=== PATIENT | female | born 1960 | race Caucasian/White ===

== ENCOUNTER 2022-08-04 09:05 | Inpatient (IN) | payer OTHER ==
[2022-08-04 09:39] LABS: HEMATOCRIT 40.4 % (34.3-46.0); HEMOGLOBIN 13.6 g/dL (11.2-15.5); MEAN CORPUSCULAR HEMOGLOBIN 30.4 pg (31.6-35.5); MEAN CORPUSCULAR HGB CONC 33.7 g/dL (31.6-35.5); MEAN CORPUSCULAR VOLUME 90.2 fL (81.4-99.0); RED BLOOD CELL COUNT 4.48 M/uL (3.77-5.24); WHITE BLOOD CELL COUNT,WBC 7.3 K/uL (3.2-11.0)
[2022-08-04] MEDS ORDERED: ceFAZolin 2 GM in Premix Bag 1 BAG IV ONE (09:45)
[2022-08-04] MEDS ORDERED: Lactated Ringers 1,000 ML IV SCH (09:45)
[2022-08-04] MEDS ORDERED: Midazolam 1 MG/ML 2 ML SDV ONE ×2 (09:55→14:06)
[2022-08-04] MEDS ORDERED: Propofol 200 MG/20 ML SDV ONE ×2 (09:55→14:17)
[2022-08-04] MEDS ORDERED: fentaNYL 100 MCG/2 ML SDV ONE (09:55)
[2022-08-04 10:04] LABS: A/G RATIO 0.9 (1.2-2.2); ALANINE AMINOTRANSFERASE,ALT 27 U/L (12-78); ALBUMIN 3.6 g/dL (3.4-5.0); ALKALINE PHOSPHATASE 86 U/L (46-116); ASPARTATE AMNIOTRANSFERASE,AST 23 U/L (15-37); BILIRUBIN TOTAL 0.4 mg/dL (0.2-1.0); BLOOD UREA NITROGEN,BUN 15 mg/dL (7-18); CALCIUM 9.2 mg/dL (8.5-10.1); CARBON DIOXIDE,CO2 27 mmol/L (21-32); CHLORIDE,CL 103 mmol/L (100-108); CREATININE 0.8 mg/dL (0.6-1.0); ESTIMATED GFR 84 mL/min (>60); GLUCOSE RANDOM 97 mg/dL (74-106); PROTEIN TOTAL,TP 7.6 g/dL (6.4-8.2); SODIUM,NA 138 mmol/L (140-148)
[2022-08-04] MEDS: Nozin Nasal Sanitizer NASBOTH SCH ×2 (10:28→21:06)
[2022-08-04] MEDS ORDERED: Bupivacaine 0.5% 50 ML MDV ONE (10:40)
[2022-08-04] MEDS ORDERED: oxyCODONE 5 MG Tab PO PRN (13:22)
[2022-08-04] MEDS ORDERED: Docusate Sodium 100 MG Cap PO PRN (13:23)
[2022-08-04] MEDS ORDERED: Non-Formulary Medication 1 Each (Diphenhydramine [Benadryl] 50 MG Cap) PO PRN (13:26)
[2022-08-04] MEDS ORDERED: ceFAZolin 1 GM in Sodium Chloride 0.9% 50 ML IV SCH (13:30)
[2022-08-04] MEDS ORDERED: Lactated Ringers 1,000 ML ONE (13:46)
[2022-08-04] MEDS ORDERED: diphenhydrAMINE 25 MG Cap PO PRN (16:22)
[2022-08-04] MEDS: Morphine 2 MG/ML SYRINGE IVPUSH PRN ×2 (16:26→22:49)
[2022-08-04] MEDS: Acetaminophen 325 MG Tab PO SCH ×2 (16:59→21:07)
[2022-08-04] MEDS: oxyCODONE 5 MG Tab PO PRN ×2 (17:59→19:17)
[2022-08-04] MEDS ORDERED: Nozin Nasal Sanitizer NASBOTH SCH (21:00)
[2022-08-04] MEDS: Aspirin 325 MG Tab.EC PO SCH (21:07)
[2022-08-04] MEDS: ceFAZolin 1 GM in Premix Bag 1 BAG IV SCH (21:08)
[2022-08-05] MEDS: Sodium Chloride 0.9% 1,000 ML IV SCH ×2 (01:33→10:09)
[2022-08-05] MEDS: oxyCODONE 5 MG Tab PO PRN ×2 (02:49→08:58)
[2022-08-05] MEDS: Acetaminophen 325 MG Tab PO SCH ×4 (04:00→21:07)
[2022-08-05] MEDS: ceFAZolin 1 GM in Premix Bag 1 BAG IV SCH ×2 (04:01→12:25)
[2022-08-05] MEDS: Ondansetron 4 MG/2 ML SDV IVPUSH PRN ×2 (07:35→14:29)
[2022-08-05] MEDS: Levothyroxine 88 MCG Tab PO SCH (08:15)
[2022-08-05] MEDS: Nozin Nasal Sanitizer NASBOTH SCH ×2 (08:15→21:07)
[2022-08-05] MEDS: Cholecalciferol (Vitamin D3) 25 MCG Tab PO SCH (08:15)
[2022-08-05] MEDS: Cetirizine 10 MG Tab PO SCH (08:15)
[2022-08-05] MEDS: Calcium Carbonate/Vitamin D3 1500 MG-400 Units Tab PO SCH (08:15)
[2022-08-05] MEDS: Aspirin 325 MG Tab.EC PO SCH ×2 (08:15→21:07)
[2022-08-05] MEDS ORDERED: Non-Formulary Medication 1 Each (Calcium Carbonate/Vitamin D3 [Calcium 600mg-D3 400 Unit S PO SCH (09:00)
[2022-08-05] MEDS ORDERED: CHOLECALCIFEROL 75 MCG PO SCH (09:00)
[2022-08-05] MEDS ORDERED: Non-Formulary Medication 1 Each (Cetirizine Hcl [Zyrtec] 10 MG Capsule) PO SCH (09:00)
[2022-08-05] MEDS: Ascorbic Acid 500 MG Tab PO SCH (11:54)
[2022-08-05] MEDS: Acetaminophen/HYDROcodone 325-7.5 MG Tab PO PRN (19:19)
[2022-08-06] MEDS: Acetaminophen 325 MG Tab PO SCH (03:29)
[2022-08-06] MEDS: Acetaminophen/HYDROcodone 325-7.5 MG Tab PO PRN ×2 (03:29→09:22)
[2022-08-06] MEDS: Levothyroxine 88 MCG Tab PO SCH (07:41)
[2022-08-06] MEDS: Cholecalciferol (Vitamin D3) 25 MCG Tab PO SCH (08:21)
[2022-08-06] MEDS: Nozin Nasal Sanitizer NASBOTH SCH (08:21)
[2022-08-06] MEDS: Cetirizine 10 MG Tab PO SCH (08:21)
[2022-08-06] MEDS: Ascorbic Acid 500 MG Tab PO SCH (08:22)
[2022-08-06] MEDS: Calcium Carbonate/Vitamin D3 1500 MG-400 Units Tab PO SCH (08:22)
[2022-08-06] MEDS: Aspirin 325 MG Tab.EC PO SCH (08:22)
== END 2022-08-06 10:01 | disposition home or self-care (01) | DRG 470 ==
LOC: JP.SDS 09:05 → JP.MS 13:23 → JP.SDS 08-05 11:30
PROVIDERS: ADMIT Specialist; ATTEND Specialist
PROC: 0SRB01Z Replacement of Left Hip Joint with Metal Synthetic Substitute, Open Approach (ICD-10-PCS; principal; 2022-08-04)
DX: M16.12 Unilateral primary osteoarthritis, left hip (principal); E78.5 Hyperlipidemia, unspecified; E03.9 Hypothyroidism, unspecified; Z79.890 Hormone replacement therapy; Z79.899 Other long term (current) drug therapy
CPT/HCPCS: 36415; 72170; 72170-26; 80053; 85027; 97110-GP; 97116-GP; 97161-GP; A9270-GY; C1776; J0690; J2250; J2270; J2405; J2704; J3010; J3490; J7030; J7120